=== PATIENT | female | born 1970 | race Caucasian/White ===

== ENCOUNTER 2016-12-10 16:22 | Emergency (ER) | payer SELFPAY | END 2016-12-10 17:55 | disposition home or self-care (01) | LOC: D.ER 16:22 | DX: S29.012A Strain of muscle and tendon of back wall of thorax, initial encounter (principal); X58.XXXA Exposure to other specified factors, initial encounter; Y93.89 Activity, other specified; Y92.019 Unspecified place in single-family (private) house as the place of occurrence of the external cause; E11.9 Type 2 diabetes mellitus without complications; J45.909 Unspecified asthma, uncomplicated ==

== ENCOUNTER 2017-01-06 19:17 | Emergency (ER) | payer MEDICAID ==
[2017-01-06 19:45] LABS: BASOPHILS 0.2 % (0.0-2.0); EOSINOPHILS 1.6 % (0-7); HEMATOCRIT 40.4 % (36.0-48.0); HEMOGLOBIN 13.6 g/dL (12-16); IMMATURE GRANULOCYTES 0.2 % (0-5); LYMPHOCYTES 39.3 % (15-50); MCH 29.2 pg (26.0-34.0); MCHC 33.7 g/dL (31.0-37.0); MCV 86.9 fL (80.0-100.0); MEAN PLATELET VOLUME 9.9 fL (7.4-10.4); MONOCYTES 6.9 % (2-11); NEUTROPHILS 51.8 % (40-80); PLATELET COUNT 394 10x3/uL (130-400); RBC 4.65 10x6/uL (4.00-5.40); RDW 12.8 % (11.5-14.5); WBC 16.2 10x3/uL (4.8-10.8)
[2017-01-06 20:03] LABS: ALBUMIN 3.8 g/dL (3.4-5.0); ANION GAP 17.6 mmol/L (8-16); BILIRUBIN - TOTAL 0.4 mg/dL (0.2-1.3); CALCIUM 9.1 mg/dL (8.5-10.1); CARBON DIOXIDE 23.1 mmol/L (21.0-32.0)
[2017-01-06 20:09] LABS: POTASSIUM - SERUM 2.7 mmol/L (3.5-5.1)
== END 2017-01-06 21:14 | disposition home or self-care (01) ==
LOC: D.ER 19:17
PROVIDERS: Emergency Medicine
DX: T78.05XA Anaphylactic reaction due to tree nuts and seeds, initial encounter (principal); X58.XXXA Exposure to other specified factors, initial encounter; E11.9 Type 2 diabetes mellitus without complications

== ENCOUNTER 2017-01-10 09:36 | Emergency (ER) | payer MEDICAID | END 2017-01-10 11:49 | disposition home or self-care (01) | LOC: D.ER 09:36 | DX: J06.9 Acute upper respiratory infection, unspecified (principal); J45.901 Unspecified asthma with (acute) exacerbation; J30.9 Allergic rhinitis, unspecified; E11.9 Type 2 diabetes mellitus without complications ==